=== PATIENT | male | born 1995 | race Caucasian/White ===

== ENCOUNTER 2018-01-21 14:40 | Emergency (ER) | payer BC, MEDICAID ==
[~2018-01-21 14:40] MED LIST: ONDA4TAB PO
[2018-01-21 15:00] VITALS: BP 150/81
--- NOTE | 2018-01-21 15:31 | ER Report ---
History and Physical Time Seen By MD: 14:50 Hx. of Stated Complaint: PT STARTED HAVING BLACK STOOL 2 HOURS AGO. COMPLAINS OF DIZZINESS. PT STATES HE TOOK PEPTO BISMOL EARLIER TODAY. DENIES ANY N/V, OR PAIN HPI/ROS CHIEF COMPLAINT: Dark stool HISTORY OF PRESENT ILLNESS: Patient is a 22-year-old male who presents the ED with complaint of 2 episodes of dark stool that he noted today. He states that he has been having some diarrhea starting this morning. He is had about 6 episodes thus far. He has been taking some Pepto-Bismol for this with some mild relief. He denies any nausea or vomiting. He has not noted any abdominal pain or fever. He states that his last 2 episodes of diarrhea that his hand had been dark and is concerned that he was bleeding. He states that he was told to Pepto- Bismol can make his stools dark but wanted to make sure that there wasn't any blood. REVIEW OF SYSTEMS: Constitutional: No fever, no chills. Cardiovascular: No chest pain, no palpitations. Respiratory: No cough, no shortness of breath. Gastrointestinal: No abdominal pain, no vomiting. Genitourinary: No hematuria. Musculoskeletal: No back pain. Skin: No rashes. Neurological: No headache. Allergies: Coded Allergies: No Known Drug Allergies (Unverified , 11/05/16) Home Meds Active Scripts Ondansetron (ZOFRAN ODT) 4 Mg Tab.rapdis, 4 MG PO Q6H Y for NAUSEA/VOMITING, # 20 TAB.HARRY Prov:JONNIE CISNEROS NP 11/05/16 Reviewed Nurses Notes: Yes Old Medical Records Reviewed: Yes Hx Smoking: Yes Exposure to Second Hand Smoke?: Yes Hx Substance Use Disorder: No Hx Alcohol Use: No Constitutional Vital Sign - Last 24 Hours 01/21/18 14:57 Temp 98.1 Pulse 72 Resp 16 B/P (MAP) 143/85 Pulse Ox 97 O2 Delivery Room Air Physical Exam General Appearance: The patient is alert, has no immediate need for airway protection and no signs of toxicity. Patient appears to be no acute distress. Eyes: Pupils equal and round no pallor or injection. ENT, Mouth: Mucous membranes are moist. Respiratory: There are no retractions, lungs are clear to auscultation. Cardiovascular: Regular rate and rhythm. Gastrointestinal: Abdomen is soft and non tender, no masses, bowel sounds normal in all 4 quadrants. Skin: Warm and dry, no rashes. Musculoskeletal: Neck is supple non tender. Extremities are nontender, nonswollen and have full range of motion. ] Medical Decision Making Data Points Laboratory Hematology Test 01/21/18 15:34 Stool Occult Blood (IFOB) Negative (NEGATIVE) Chemistry Test 01/21/18 15:34 Stool Occult Blood (IFOB) Negative (NEGATIVE) ED Course/Re-evaluation ED Course Will obtain an occult blood stool. 01/21/2018 4:38:08 pm - stool occult blood was negative. Discussed this with patient. Likely the dark stools are due to the Pepto-Bismol. Decision to Disposition Date: Jan 21, 2018 Decision to Disposition Time: 16:38 Depart Departure Latest Vital Signs Vital Signs Date Time Temp Pulse Resp B/P (MAP) Pulse Ox O2 Delivery O2 Flow Rate FiO2 01/21/18 14:57 98.1 72 16 143/85 97 Room Air Impression: Primary Impression: Diarrhea Condition: Improved Disposition: HOME OR SELF-CARE Patient Instructions: Acute Diarrhea (ED) Additional Instructions: Stay well-hydrated. Follow-up with primary care provider in 3-4 days. If having any worsening or concerning symptoms may return to the emergency department. Problem Qualifiers Primary Impression: Diarrhea Diarrhea type: unspecified type Qualified Codes: R19.7 - Diarrhea, unspecified DMITRY ODELL PA-C Jan 21, 2018 15:31
== END 2018-01-21 16:49 | disposition home or self-care (01) ==
LOC: ER 15:01
DX: R19.7 Diarrhea, unspecified (principal)
CPT/HCPCS: 82274; 99282